=== PATIENT | female | born 2000 | race African-American/Black ===

== ENCOUNTER 2020-04-17 10:53 | Emergency (ER) | payer OTHER ==
[~2020-04-17] VITALS: Ht 165.1 cm; Wt 72.7 kg
[2020-04-17 10:55] VITALS: TEMP 99
[2020-04-17] MEDS ORDERED: FLEXERIL 1010 MG/TAB PO (13:36)
[2020-04-17] MEDS ORDERED: NORCO 325 MG-51 TAB PO (13:36)
[2020-04-17 13:50] VITALS: BP 128/70; PULSE 83
== END 2020-04-17 13:51 | disposition home or self-care (01) ==
LOC: COL.ER 10:53
PROVIDERS: Emergency Medicine
DX: S16.1XXA Strain of muscle, fascia and tendon at neck level, initial encounter (principal); S60.222A Contusion of left hand, initial encounter; V49.9XXA Car occupant (driver) (passenger) injured in unspecified traffic accident, initial encounter
CPT/HCPCS: J3010